=== PATIENT | female | born 2005 | race Caucasian/White ===

== ENCOUNTER 2025-01-24 21:59 | Emergency (ER) | payer BC ==
[~2025-01-24] VITALS: Ht 160 cm; Wt 40.8 kg
[2025-01-24 23:08] VITALS: BP 101/68; TEMP 98
[2025-01-24] MEDS ORDERED: AMOX/CLAVULANATE 875 MG TABLET ONE (23:19)
[2025-01-24] MEDS ORDERED: TDAP [DIPH/PERTUSSIS/TET] 0.5 ML VIAL IM ONE (23:20)
[2025-01-24] MEDS: AMOX/CLAVULANATE 875 MG TABLET PO ONE (23:23)
[2025-01-24] MEDS: TDAP [DIPH/PERTUSSIS/TET] 0.5 ML VIAL IM ONE (23:23)
[2025-01-24] MEDS ORDERED: AMOX-430 PO (23:26)
[2025-01-24 23:31] VITALS: O2SAT 100
== END 2025-01-24 23:32 | disposition home or self-care (01) ==
LOC: ER 22:04
DX: S31.815A Open bite of right buttock, initial encounter (principal); W54.0XXA Bitten by dog, initial encounter; Y93.89 Activity, other specified; Y92.89 Other specified places as the place of occurrence of the external cause; Y99.8 Other external cause status
CPT/HCPCS: 90715